=== PATIENT | female | born 1975 | race Caucasian/White ===

== ENCOUNTER → 2016-10-10 | Outpatient (CLI) | payer OTHER ==
[~2016-10-10] MED LIST: AMLODIPINE BESYL5 MG PO; BASAGLAR KWIK PEN SQ; BUPROPION HCL150 MG PO; CATAPRES 0.1MG0.1 MG PO; CLARITIN10 M2 PO; GLUCOTROL 10 MG10 MG PO; HYDROXYZINE HCL50 MG PO; IBUPROFEN600 MG PO; LASIX TAB 20 MG20 MG PO; MACROBID 100 M100 MG PO; METHOCARBAMOL500 MG PO; NORCO 5-325 TA1 EACH PO; OMEPRAZOLE20 MG PO; PRAVASTATIN SOD40 MG PO; PROSCAR 5 MG TAB5 MG PO; PROZAC 20 MG CA20 MG PO; TRAZODONE HCL150 MG PO; VOLTAREN100 GM TD; ZIPRASIDONE HCL80 MG PO
== END ==
LOC: ECHO 09-11 11:00
DX: R60.9 Edema, unspecified (principal); I31.3 Pericardial effusion (noninflammatory)
CPT/HCPCS: ECHO; 93306

== ENCOUNTER → 2016-10-18 | Outpatient (CLI) | payer OTHER | LOC: MAMO 10-17 11:20 | DX: Z12.31 Encounter for screening mammogram for malignant neoplasm of breast (principal) | CPT/HCPCS: G0202 ==

== ENCOUNTER → 2016-11-20 | Outpatient (CLI) | payer OTHER | LOC: US 11-19 11:00 | PROVIDERS: Internal Medicine Nephrology | DX: N91.2 Amenorrhea, unspecified (principal); L68.0 Hirsutism; N17.9 Acute kidney failure, unspecified; E78.5 Hyperlipidemia, unspecified | CPT/HCPCS: 36415; 80053; 82043; 82550; 82570; 82670; 83001; 83002; 84146; 84402; 84703; 89050 ==

== ENCOUNTER → 2017-01-25 | Day surgery (SDC) | payer OTHER ==
[2017-01-25 06:49] LABS: HEMOGLOBIN 14.3 gm/dl (12.3-15.3); RED BLOOD COUNT 5.02 M/UL (4.00-5.10); WHITE BLOOD COUNT 6.4 K/UL (4.5-11.0)
== END | disposition home or self-care (01) ==
LOC: OR 06:17
PROVIDERS: Obstetrics & Gynecology
PROC: 0UDB8ZX Extraction of Endometrium, Via Natural or Artificial Opening Endoscopic, Diagnostic (ICD-10-PCS; principal; 2017-01-25 08:00)
DX: N85.01 Benign endometrial hyperplasia (principal); R93.8 Abnormal findings on diagnostic imaging of other specified body structures; E66.01 Morbid (severe) obesity due to excess calories; Z68.42 Body mass index [BMI] 45.0-49.9, adult; I10 Essential (primary) hypertension; E11.9 Type 2 diabetes mellitus without complications; K21.9 Gastro-esophageal reflux disease without esophagitis; M19.90 Unspecified osteoarthritis, unspecified site; F17.210 Nicotine dependence, cigarettes, uncomplicated; Z79.899 Other long term (current) drug therapy; Z98.890 Other specified postprocedural states
CPT/HCPCS: 80048; 81001; 82962; 84703; 85025; 87086; J2250; J2405; J2710; J2795; J3010; J7120

== ENCOUNTER → 2020-08-26 | Outpatient (CLI) | payer OTHER ==
[~2020-08-26] MED LIST changes: +ADMELOG SO100 UNIT/1 SQ; +BACTRIM DS TAB1 EACH PO; +CAPSAICIN CREAM TOP; +CLEOCIN HCL300 MG PO; +GLUCOPHAGE XR750 MG PO; +HYDROCODON-ACE1 EAC4 PO; +IBUPROFEN800 MG PO; +KEFLEX CAP 500500 MG PO; +KEFLEX500 MG PO; +LIPITOR TAB 1010 MG PO; +LOVENOX SQ; +LOVENOX40 MG/0.4 PO; +MELATONIN3 MG PO; +MINIPRESS2 MG PO; +NAPROSYN500 MG PO; +NEURONTIN400 MG PO; +NORCO 7.5-3251 EACH PO; +OZEMPIC1 MG/0.75 INJ; +PRAZOSIN HCL2 MG PO; +PRISTIQ ER50 MG PO; +TOUJEO MAX300 UNIT/1 SQ; +TRAZODONE HCL100 MG PO; +VISTARIL 50 MG50 MG PO; +VITAMIN C 500500 MG PO; +VITAMIN C PO; +VITAMIN D250000 UNIT PO; +XYLOCAINE 2% JE30 ML TOP
[2020-08-26 10:20] LABS: HEMOGLOBIN 15.7 gm/dl (12.3-15.3); RED BLOOD COUNT 5.01 M/UL (4.00-5.10); WHITE BLOOD COUNT 9.4 K/UL (4.5-11.0)
[2020-08-27 10:13] LABS: CREATININE, URINE 122.5 mg/dL (Not Estab.)
== END ==
LOC: MAMO 08:00
PROVIDERS: Family Medicine
DX: Z12.31 Encounter for screening mammogram for malignant neoplasm of breast (principal); E11.9 Type 2 diabetes mellitus without complications; I10 Essential (primary) hypertension; E78.2 Mixed hyperlipidemia; E55.9 Vitamin D deficiency, unspecified
CPT/HCPCS: 36415; 77063; 77067; 80053; 80061; 82043; 82570; 83735; 85027

== ENCOUNTER → 2020-09-29 | Outpatient (CLI) | payer OTHER ==
[2020-09-29 18:24] LABS: HEMOGLOBIN 15.4 gm/dl (12.3-15.3); RED BLOOD COUNT 4.91 M/UL (4.00-5.10); WHITE BLOOD COUNT 8.9 K/UL (4.5-11.0)
== END ==
LOC: LAB 17:25
PROVIDERS: Family Medicine
DX: N18.30 Chronic kidney disease, stage 3 unspecified (principal); M79.604 Pain in right leg; M79.89 Other specified soft tissue disorders
CPT/HCPCS: 80053; 85027; 85379

== ENCOUNTER → 2020-11-15 | Outpatient (CLI) | payer OTHER | LOC: EXRD 14:43 | DX: R06.02 Shortness of breath (principal) | CPT/HCPCS: 71046 ==

== ENCOUNTER → 2020-11-25 | Outpatient (CLI) | payer OTHER | LOC: OPSV2 09:30 | PROVIDERS: Surgery | DX: Z01.812 Encounter for preprocedural laboratory examination (principal); Z01.810 Encounter for preprocedural cardiovascular examination; E11.9 Type 2 diabetes mellitus without complications; I10 Essential (primary) hypertension; G47.30 Sleep apnea, unspecified | CPT/HCPCS: 36415; 80048; 93005 ==

== ENCOUNTER → 2020-12-01 | Day surgery (SDC) | payer OTHER | END | disposition home or self-care (01) | LOC: OR 06:06 | DX: L72.0 Epidermal cyst (principal); E11.22 Type 2 diabetes mellitus with diabetic chronic kidney disease; I12.9 Hypertensive chronic kidney disease with stage 1 through stage 4 chronic kidney disease, or unspecified chronic kidney disease; N18.4 Chronic kidney disease, stage 4 (severe); J30.9 Allergic rhinitis, unspecified; M19.90 Unspecified osteoarthritis, unspecified site; F31.9 Bipolar disorder, unspecified; F41.9 Anxiety disorder, unspecified; K21.9 Gastro-esophageal reflux disease without esophagitis; E78.00 Pure hypercholesterolemia, unspecified; E78.2 Mixed hyperlipidemia; G47.33 Obstructive sleep apnea (adult) (pediatric); M81.0 Age-related osteoporosis without current pathological fracture; E11.42 Type 2 diabetes mellitus with diabetic polyneuropathy; E11.65 Type 2 diabetes mellitus with hyperglycemia; K76.0 Fatty (change of) liver, not elsewhere classified; E66.01 Morbid (severe) obesity due to excess calories; F17.210 Nicotine dependence, cigarettes, uncomplicated; Z68.42 Body mass index [BMI] 45.0-49.9, adult; Z79.4 Long term (current) use of insulin; Z79.899 Other long term (current) drug therapy; Z99.89 Dependence on other enabling machines and devices | CPT/HCPCS: 82962; 94660; J0690; J1100; J2001; J2250; J2310; J2370; J2405; J2704; J2710; J3010; J7030; J7120 ==

== ENCOUNTER → 2020-12-21 | Outpatient (CLI) | payer OTHER | LOC: ECHO 09:00 | DX: R06.02 Shortness of breath (principal); M79.89 Other specified soft tissue disorders; I51.89 Other ill-defined heart diseases | CPT/HCPCS: ECHO; 93306 ==

== ENCOUNTER → 2021-06-06 | Outpatient (CLI) | payer OTHER | LOC: EXRD 05-31 11:30 | DX: N17.9 Acute kidney failure, unspecified (principal) | CPT/HCPCS: 76775 ==